=== PATIENT | female | born 2000 | race Caucasian/White ===

== ENCOUNTER 2018-12-27 16:44 | Emergency (ER) | payer OTHER ==
[2018-12-27] MEDS: IBUPROFEN 600 MG TAB PO (18:45)
== END 2018-12-27 19:38 | disposition home or self-care (01) ==
LOC: FTE 16:44
DX: M54.9 Dorsalgia, unspecified (principal); R07.89 Other chest pain; J45.909 Unspecified asthma, uncomplicated
CPT/HCPCS: 71045; 99283-25